=== PATIENT | female | born 1990 | race Caucasian/White ===

== ENCOUNTER 2018-03-12 22:36 | Inpatient (IN) | payer OTHER ==
[~2018-03-12 22:36] MED LIST: Bupivacaine 0.25% 10 ML SDV ONE
[2018-03-12] MEDS ORDERED: Sodium Chloride 0.9% 10 ML Syringe FLUSH PRN (22:57)
[2018-03-12] MEDS: Lactated Ringers 1,000 ML IV SCH ×3 (23:00→23:25)
[2018-03-12] MEDS ORDERED: Oxytocin/Lactated Ringers 10 UNIT/1,000 ML BAG IV SCH (23:30)
[2018-03-12] MEDS ORDERED: ePHEDrine 50 MG/ML SDV IVPUSH PRN (23:36)
[2018-03-12] MEDS ORDERED: diphenhydrAMINE 50 MG/ML SDV IVPUSH PRN (23:36)
[2018-03-12] MEDS ORDERED: fentaNYL 100 MCG/2 ML SDV EPIDUR PRN (23:36)
[2018-03-12] MEDS ORDERED: Bupivacaine/fentaNYL/NS 100 ML Bag EPIDUR SCH (23:45)
--- NOTE | 2018-03-13 00:01 | PCM.PREANE ---
Preanesthetic Assessment - Anesthesia/Transfusion/Family Hx Anesthesia History: Prior Anesthesia Without Reaction Family History of Anesthesia Reaction: No Transfusion History: No Prior Transfusion(s) - Review of Systems General: No Symptoms Pulmonary: No Symptoms Cardiovascular: No Symptoms Neurological: No Symptoms Other: Reports: None - Physical Assessment O2 Sat by Pulse Oximetry: 100 Respiratory Rate: 16 Vital Signs: Last Vital Signs Temp 98.4 F 03/12/18 22:57 Pulse Resp 16 03/12/18 22:57 BP 129/84 03/12/18 22:57 Pulse Ox 100 03/12/18 22:57 Weight: 64.41 kg ASA Class: 2 Mental Status: Alert & Oriented x3 Airway Class: Mallampati = 1 Dentition: Reports: Normal Dentition Thyro-Mental Finger Breadths: 3 Mouth Opening Finger Breadths: 3 ROM/Head Extension: Full Lungs: Clear to Auscultation, Normal Respiratory Effort Cardiovascular: Regular Rate, Regular Rhythm - Lab Values: Laboratory Last Values WBC 14.17 K/mm3 (3.98-10.04) H 03/12/18 23:15 RBC 3.69 M/mm3 (3.98-5.22) L 03/12/18 23:15 Hgb 12.1 gm/L (11.2-15.7) 03/12/18 23:15 Hct 35.5 % (34.1-44.9) 03/12/18 23:15 MCV 96.2 fl (79.4-94.8) H 03/12/18 23:15 MCH 32.8 pg (25.6-32.2) H 03/12/18 23:15 MCHC 34.1 g/dl (32.2-35.5) 03/12/18 23:15 RDW Std Deviation 44.8 fL (36.4-46.3) 03/12/18 23:15 Plt Count 180 K/mm3 (182-369) L 03/12/18 23:15 MPV 9.9 fl (9.4-12.3) 03/12/18 23:15 Neut % (Auto) 67.2 % (34.0-71.1) 03/12/18 23:15 Lymph % (Auto) 24.9 % (19.3-51.7) 03/12/18 23:15 [place] % (Auto) 7.3 % (4.7-12.5) 03/12/18 23:15 Eos % (Auto) 0.1 (0.7-5.8) L 03/12/18 23:15 Baso % (Auto) 0.1 % (0.1-1.2) 03/12/18 23:15 Neut # (Auto) 9.51 K/mm3 (1.56-6.13) H 03/12/18 23:15 Lymph # (Auto) 3.53 K/mm3 (1.18-3.74) 03/12/18 23:15 [place] # (Auto) 1.04 K/mm3 (0.24-0.36) H 03/12/18 23:15 Eos # (Auto) 0.02 K/mm3 (0.04-0.36) L 03/12/18 23:15 Baso # (Auto) 0.02 K/mm3 (0.01-0.08) 03/12/18 23:15 - Allergies Allergies/Adverse Reactions: Allergies Allergy/AdvReac Type Severity Reaction Status Date / Time No Known Allergies Allergy Verified 04/07/16 16:24 CDT - Blood Blood Available: No - Acknowledgements Anesthesia Type Planned: Epidural Pt an Appropriate Candidate for the Planned Anesthesia: Yes Alternatives and Risks of Anesthesia Discussed w Pt/Guardian: Yes Pt/Guardian Understands and Agrees with Anesthesia Plan: Yes PreAnesthesia Questionnaire Cardiovascular History: Reports: None Respiratory History: Reports: None Gastrointestinal History: Reports: GERD (with preg) : 2 (39 weeks) Para: 1 - Past Surgical History HEENT Surgical History: Reports: Oral Surgery, Other (See Below) (ears pin back) - History Comment History Comment: vits - SUBSTANCE USE Smoking Status *Q: Never Smoker Tobacco Use Within Last Twelve Months: No Second Hand Smoke Exposure: No Days Per Week of Alcohol Use: 0 Recreational Drug Use History: No - CURRENT (IN HOUSE) MEDS Current Meds: Current Medications Diphenhydramine HCl (Benadryl) 25 mg IVPUSH Q6H PRN PRN Reason: pruritis Ephedrine Sulfate (Ephedrine Sulfate) 5 mg IVPUSH ASDIRECTED PRN PRN Reason: Hypotension Fentanyl (Sublimaze) 100 mcg EPIDUR Q3H PRN PRN Reason: Pain Last Admin: 03/12/18 23:57 Dose: 100 mcg Fentanyl/Bupivacaine HCl (Fentanyl/Bupivacaine/Ns 2 Mcg-0.125% 100 Ml) 100 ml EPIDUR ASDIRECTED SAILAJA Last Admin: 03/12/18 23:57 Dose: 100 ml Lactated Ringer's (Ringers, Lactated) 1,000 mls @ 100 mls/hr IV ASDIRECTED SAILAJA Last Admin: 03/12/18 23:00 Dose: 100 mls/hr Oxytocin/Lactated Ringer's (Pitocin In Lr 10 Units/1,000 Ml) 10 unit in 1,000 mls @ 500 mls/hr IV ASDIRECTED SAILAJA; Protocol Sodium Chloride (Saline Flush) 10 ml FLUSH ASDIRECTED PRN PRN Reason: Keep Vein Open
--- NOTE | 2018-03-13 01:37 | PCM.DEL ---
L & D Note - General Info Date of Service: 03/13/18 - Delivery Note Labor: Spontaneous Delivery Outcome: Livebirth Delivery Method: Spontaneous Vaginal Delivery-Single Delivery Mode: Spontaneous Presentation: Right Occiput Anterior (АЛЕКСАНДР) Nuchal Cord: Present, Reduced Anesthesia Type: Epidural Amniotic Fluid Description: Clear Episiotomy Type: None Laceration: None Placenta: Intact, Spontaneous Cord: 3 Vessels Estimated Blood Loss: 200 Resuscitation Needed: Yes [place]: Bulb Syringe, Stimulated, Warmed, [place] Used, Warmer Used Score 1 min: 8 Score 5 min: 9 Delivery Comments (Free Text/Narrative):: Patient found to be complete and began pushing. With maternal pushing effort head delivered from an АЛЕКСАНДР presentation. Nuchal cord present and reduced. With gentle downward traction the shoulders and body delivered. placed on maternal abdomen. Cord clamped and cut. Cord blood obtained. Placenta allowed tie to separate and expelled intact. Inspection of the perineum showed no lacerations - General Info Date of Service: 03/13/18 - Patient Data Vitals - Most Recent: Last Vital Signs Temp 36.9 C 03/12/18 22:57 Pulse Resp 16 03/13/18 00:01 BP 129/84 03/12/18 22:57 Pulse Ox 100 03/13/18 00:01 Weight - Most Recent: 64.41 kg Lab Results Last 24 Hours: Laboratory Results - last 24 hr 03/12/18 Range/Units 23:15 WBC 14.17 H (3.98-10.04) K/mm3 RBC 3.69 L (3.98-5.22) M/mm3 Hgb 12.1 (11.2-15.7) gm/L Hct 35.5 (34.1-44.9) % MCV 96.2 H (79.4-94.8) fl MCH 32.8 H (25.6-32.2) pg MCHC 34.1 (32.2-35.5) g/dl RDW Std Deviation 44.8 (36.4-46.3) fL Plt Count 180 L (182-369) K/mm3 MPV 9.9 (9.4-12.3) fl Neut % (Auto) 67.2 (34.0-71.1) % Lymph % (Auto) 24.9 (19.3-51.7) % [place] % (Auto) 7.3 (4.7-12.5) % Eos % (Auto) 0.1 L (0.7-5.8) Baso % (Auto) 0.1 (0.1-1.2) % Neut # (Auto) 9.51 H (1.56-6.13) K/mm3 Lymph # (Auto) 3.53 (1.18-3.74) K/mm3 [place] # (Auto) 1.04 H (0.24-0.36) K/mm3 Eos # (Auto) 0.02 L (0.04-0.36) K/mm3 Baso # (Auto) 0.02 (0.01-0.08) K/mm3 Med Orders - Current: Current Medications Diphenhydramine HCl (Benadryl) 25 mg IVPUSH Q6H PRN PRN Reason: pruritis Ephedrine Sulfate (Ephedrine Sulfate) 5 mg IVPUSH ASDIRECTED PRN PRN Reason: Hypotension Fentanyl (Sublimaze) 100 mcg EPIDUR Q3H PRN PRN Reason: Pain Last Admin: 03/12/18 23:57 Dose: 100 mcg Fentanyl/Bupivacaine HCl (Fentanyl/Bupivacaine/Ns 2 Mcg-0.125% 100 Ml) 100 ml EPIDUR ASDIRECTED SAILAJA Last Admin: 03/12/18 23:57 Dose: 100 ml Lactated Ringer's (Ringers, Lactated) 1,000 mls @ 100 mls/hr IV ASDIRECTED SAILAJA Last Admin: 03/12/18 23:00 Dose: 100 mls/hr Oxytocin/Lactated Ringer's (Pitocin In Lr 10 Units/1,000 Ml) 10 unit in 1,000 mls @ 500 mls/hr IV ASDIRECTED SAILAJA; Protocol Sodium Chloride (Saline Flush) 10 ml FLUSH ASDIRECTED PRN PRN Reason: Keep Vein Open - Problem List & Annotations (1) 39 weeks gestation of SNOMED Code(s): 75953646 Code(s): Z3A.39 - 39 WEEKS GESTATION OF Status: Acute Current Visit: Yes (2) Normal labor SNOMED Code(s): 49902914 Code(s): O80 - ENCOUNTER FOR FULL-TERM UNCOMPLICATED DELIVERY; Z37.9 - OUTCOME OF DELIVERY, UNSPECIFIED Status: Acute Current Visit: Yes (3) Vaginal delivery SNOMED Code(s): 164869624 Code(s): O80 - ENCOUNTER FOR FULL-TERM UNCOMPLICATED DELIVERY Status: Acute Current Visit: No - Problem List Review Problem List Initiated/Reviewed/Updated: Yes - My Orders Last 24 Hours: My Active Orders 03/12/18 22:57 Activity as Tolerated [RC] PFP Communication Order [RC] ASDIRECTED Notify Provider [RC] PFP Notify Provider [RC] PRN Vital Signs [RC] PER UNIT ROUTINE RAPID PLASMA REAGIN,RPR [CHEM] Stat Sodium Chloride 0.9% [Saline Flush] 10 ml FLUSH ASDIRECTED PRN Electronic Heart Tones Ext w TOCO [WOMSER] Routine Electronic Heart Tones Internal [WOMSER] Per Unit Routine Peripheral IV Insertion Adult [OM.PC] Routine Resuscitation Status Routine 03/12/18 22:58 Patient Status [ADT] Routine Peripheral IV Care [RC] . DIRECTED 03/12/18 23:00 PCEA Epidural [RC] ASDIRECTED Urinary Catheter Assessment [RC] ASDIRECTED Urinary Catheter Removal [RC] Per Unit Routine Lactated Ringers [Ringers, Lactated] 1,000 ml IV ASDIRECTED 03/12/18 23:30 Oxytocin/Lactated Ringers [Pitocin in LR 10 Units/1,000 ML] 10 unit in 1,000 ml IV ASDIRECTED 03/12/18 Breakfast Regular Diet [DIET] 03/13/18 01:35 Patient Status Manage Transfer [TRANSFER] Routine - Assessment Assessment:: 27 y/o G2 now P2002 PPD#0 from at 39 5/7 wks - Plan Plan:: * Routine cares * Encourage breast feeding * Discharge home in 1 day
[2018-03-13] MEDS ORDERED: Benzocaine/Menthol 20%-0.5% Spray 56 GM Canister TOP PRN (02:17)
[2018-03-13] MEDS ORDERED: Witch Hazel Medicated Pads 100/Jar TOP PRN (02:17)
[2018-03-13] MEDS ORDERED: Ibuprofen 600 MG Tab PO PRN (02:17)
[2018-03-13] MEDS ORDERED: Acetaminophen 325 MG Tab PO PRN (02:17)
[2018-03-13] MEDS ORDERED: Lanolin 100% Cream 7 GM Tube TOP PRN (02:17)
[2018-03-13] MEDS ORDERED: Docusate Sodium 100 MG Cap PO PRN (02:17)
[2018-03-13] MEDS: Lactated Ringers 1,000 ML IV SCH (04:18)
--- NOTE | 2018-03-13 07:44 | PCM.LDHP ---
L&D History of Present Illness - General Date of Service: 03/12/18 Admit Problem/Dx: Admission Diagnosis/Problem Admission Diagnosis/Problem Source of Information: Patient History Limitations: Reports: No Limitations - History of Present Illness Introduction:: Patient is a 27 y/o who presents at 39 4/7 wks in labor. Contractions started after appointment earlier today. 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: Reports: : 2 Para: 1 LMP (Approximate): Psychiatric History: Reports: Depression - Past Surgical History HEENT Surgical History: Reports: Oral Surgery, Other (See Below) (ears pin back) Social & Family History - Family History Family Medical History: Noncontributory - Tobacco Use Smoking Status *Q: Never Smoker Second Hand Smoke Exposure: No - Alcohol Use Alcohol Use History: No Days Per Week of Alcohol Use: 0 - Recreational Drug Use Recreational Drug Use: No H&P Review of Systems - Review of Systems: Review Of Systems: See Below General: Reports: No Symptoms Pulmonary: Reports: No Symptoms Cardiovascular: Reports: No Symptoms Gastrointestinal: Reports: No Symptoms Genitourinary: Reports: No Symptoms Musculoskeletal: Reports: No Symptoms Neurological: Reports: No Symptoms L&D Exam - Exam Exam: See Below - Vital Signs Vital Signs: Last Vital Signs Temp 36.9 C 03/12/18 22:57 Pulse Resp 16 03/13/18 00:01 BP 129/84 03/12/18 22:57 Pulse Ox 100 03/13/18 00:01 Weight: 64.41 kg - OB Specific Contraction Intensity: Moderate to Strong Movement: Active Heart Tones: Present Heart Rate (FHR) Variability: Moderate (6-25 bmp) Presentation: Vertex - Zavala Score Zavala Score Cervix Position: Anterior Zavala Score Consistency: Soft Zavala Score Effacement: >80% Zavala Score Dilation: > 5 cm Zavala Score Infant's Station: +1, +2 Zavala Score Total: 13 - Exam General: Alert, Oriented, Cooperative Lungs: Clear to Auscultation, Normal Respiratory Effort Cardiovascular: Regular Rate, Regular Rhythm GI/Abdominal Exam: Soft, Non-Tender Genitourinary: Normal external exam Extremities: Normal Inspection Skin: Warm, Dry, Intact - Patient Data Lab Results Last 24 hrs: Laboratory Results - last 24 hr 03/12/18 Range/Units 23:15 WBC 14.17 H (3.98-10.04) K/mm3 RBC 3.69 L (3.98-5.22) M/mm3 Hgb 12.1 (11.2-15.7) gm/L Hct 35.5 (34.1-44.9) % MCV 96.2 H (79.4-94.8) fl MCH 32.8 H (25.6-32.2) pg MCHC 34.1 (32.2-35.5) g/dl RDW Std Deviation 44.8 (36.4-46.3) fL Plt Count 180 L (182-369) K/mm3 MPV 9.9 (9.4-12.3) fl Neut % (Auto) 67.2 (34.0-71.1) % Lymph % (Auto) 24.9 (19.3-51.7) % [place] % (Auto) 7.3 (4.7-12.5) % Eos % (Auto) 0.1 L (0.7-5.8) Baso % (Auto) 0.1 (0.1-1.2) % Neut # (Auto) 9.51 H (1.56-6.13) K/mm3 Lymph # (Auto) 3.53 (1.18-3.74) K/mm3 [place] # (Auto) 1.04 H (0.24-0.36) K/mm3 Eos # (Auto) 0.02 L (0.04-0.36) K/mm3 Baso # (Auto) 0.02 (0.01-0.08) K/mm3 Result Diagrams: 03/12/18 23:15 - Problem List (1) 39 weeks gestation of SNOMED Code(s): 38765688 ICD Code: Z3A.39 - 39 WEEKS GESTATION OF Status: Acute Current Visit: Yes (2) Normal labor SNOMED Code(s): 73290235 ICD Code: O80 - ENCOUNTER FOR FULL-TERM UNCOMPLICATED DELIVERY; Z37.9 - OUTCOME OF DELIVERY, UNSPECIFIED Status: Acute Current Visit: Yes Problem List Initiated/Reviewed/Updated: Yes Orders Last 24hrs: Active Orders 24 hr Category Date Time Status Activity as Tolerated [RC] PER UNIT ROUTINE Care 03/13/18 02:17 Active Notify Provider [RC] ASDIRECTED Care 03/12/18 23:36 Inactive PCEA Epidural [RC] ASDIRECTED Care 03/12/18 23:00 Inactive Urinary Catheter Assessment [RC] ASDIRECTED Care 03/12/18 23:00 Inactive Vital Signs [RC] 03,09,15,21 Care 03/13/18 02:17 Active Regular Diet [DIET] Diet 03/13/18 Breakfast Active RAPID PLASMA REAGIN,RPR [CHEM] Stat Lab 03/12/18 22:57 Ordered Acetaminophen [Tylenol] Med 03/13/18 02:17 Active 650 mg PO Q4H PRN Benzocaine/Menthol [Dermoplast Pain Relief [place]] Med 03/13/18 02:17 Active See Dose Instructions TOP ASDIRECTED PRN Docusate Sodium [Colace] Med 03/13/18 02:17 Active 100 mg PO BID PRN Ibuprofen [Motrin] Med 03/13/18 02:17 Active 600 mg PO Q6H PRN Lanolin [Lansinoh HPA] Med 03/13/18 02:17 Active See Dose Instructions TOP ASDIRECTED PRN Witch Apurva [Tucks] Med 03/13/18 02:17 Active 1 pad TOP ASDIRECTED PRN Assess Lochia [WOMSER] Per Unit Routine Oth 03/13/18 02:17 Ordered Assess Uterine Involution [WOMSER] Per Unit Routine Oth 03/13/18 02:17 Ordered Breast Pump [WOMSER] Per Unit Routine Oth 03/13/18 02:17 Ordered Heat Therapy [OM.PC] PRN Oth 03/13/18 02:17 Ordered Heat Therapy [OM.PC] PRN Oth 03/14/18 02:17 Ordered Ice Therapy [OM.PC] Per Unit Routine Oth 03/13/18 02:17 Ordered Perineal Care [OM.PC] Per Unit Routine Oth 03/13/18 02:17 Ordered Peripheral IV Discontinue [OM.PC] Routine Oth 03/13/18 02:17 Ordered Sitz Bath [OM.PC] Per Unit Routine Oth 03/13/18 02:17 Ordered Resuscitation Status Routine Resus Stat 03/12/18 22:57 Ordered Medication Orders Acetaminophen (Tylenol) 650 mg PO Q4H PRN PRN Reason: mild pain or fever Benzocaine/Menthol (Dermoplast Pain Relief [place]) 0 gm TOP ASDIRECTED PRN PRN Reason: Perineal Comfort Measure Docusate Sodium (Colace) 100 mg PO BID PRN PRN Reason: Constipation Emollient Ointment (Lansinoh Hpa) 0 gm TOP ASDIRECTED PRN PRN Reason: Sore Nipples Ibuprofen (Motrin) 600 mg PO Q6H PRN PRN Reason: Mild pain or fever Witch Apurva (Tucks) 1 pad TOP ASDIRECTED PRN PRN Reason: Hemorrhoid pain Assessment/Plan Comment:: 27 y/o at 39 4/7 wks who presents in labor * CBC and T&S * GBS negative, no need for antibiotics * Epidural for pain management * Anticipate
--- NOTE | 2018-03-13 08:00 | PCM48HPAN ---
Post Anesthesia Note - EVALUATION WITHIN 48HRS OF ANESTHETIC Vital Signs in Normal Range: Yes Patient Participated in Evaluation: Yes Respiratory Function Stable: Yes Airway Patent: Yes Cardiovascular Function Stable: Yes Hydration Status Stable: Yes Pain Control Satisfactory: Yes Nausea and Vomiting Control Satisfactory: Yes Mental Status Recovered: Yes
[2018-03-14 03:36] VITALS: BP 111/65
--- NOTE | 2018-03-14 06:53 | PCM.DCSUM1 ---
Discharge Summary - Hospital Course Free Text/Narrative:: Julita is a 27-year-old 2 now para 2002 female who is admitted 2 days ago at 39-4/7 weeks gestational age. She is in active labor. She progressed delivered vaginally and is now on day 2. No concerns. She is nursing without problems, ambulating well, has minimal lochia and is voiding without difficulty. She is desiring discharge home from the hospital. - Discharge Data Discharge Date: 03/14/18 Discharge Disposition: Home, Self-Care 01 Condition: Good - Patient Instructions Diet: Regular Diet as Tolerated (Nursing diet was increased calories and calcium as directed) Activity: As Tolerated (No intercourse tampons until bleeding resolves) Driving: Do Not Drive (2 days) Showering/Bathing: May Shower (May take a bath) Notify Provider of: Fever, Increased Pain, Swelling and Redness, Nausea and/or Vomiting - Discharge Plan Home Medications: Home Meds Acetaminophen [Tylenol] 650 mg PO Q4H PRN #0 tablet 03/14/18 [Rx] Ibuprofen [Motrin] 600 mg PO Q6H PRN tablet 03/14/18 [Rx] Referrals: Idalmis Willams MD [Primary Care Provider] - (Patient to call Dr. Willams's office next week to arrange a appointment..) - Discharge Summary/Plan Comment DC Time >30 min.: No Discharge Summary/Plan Comment: Discharge instructions: 1. Discharge home 2. Diet, activity and follow-up discussed with patient. Recommend nursing diet with increased calories and calcium. 3. Precautions given concern increased pain, bleeding, temperature, signs/ symptoms of DVT/PE. 4. Medications per home medication was printed, discussed with and given to the patient. 5. Return to clinic-Dr. Willams-patient to call for an appointment. Diagnosis: Term -delivered Condition: Good - Patient Data Vitals - Most Recent: Last Vital Signs Temp 36.8 C 03/14/18 03:02 Pulse 52 L 03/14/18 03:02 Resp 16 03/14/18 03:02 BP 111/65 03/14/18 03:02 Pulse Ox 98 03/14/18 03:02 Weight - Most Recent: 64.41 kg I&O - Last 24 hours: Intake & Output 06/05/2303/13/18 03/14/18 14:59 22:59 06:59 Intake Total 0 Balance 0 Lab Results - Last 24 hrs: Laboratory Results - last 24 hr 03/12/18 Range/Units 23:15 RPR Non-reactive (NONREACTIVE) Med Orders - Current: Current Medications Acetaminophen (Tylenol) 650 mg PO Q4H PRN PRN Reason: mild pain or fever Benzocaine/Menthol (Dermoplast Pain Relief [place]) 0 gm TOP ASDIRECTED PRN PRN Reason: Perineal Comfort Measure Docusate Sodium (Colace) 100 mg PO BID PRN PRN Reason: Constipation Emollient Ointment (Lansinoh Hpa) 0 gm TOP ASDIRECTED PRN PRN Reason: Sore Nipples Ibuprofen (Motrin) 600 mg PO Q6H PRN PRN Reason: Mild pain or fever Last Admin: 03/14/18 03:08 Dose: 600 mg Witch Apurva (Tucks) 1 pad TOP ASDIRECTED PRN PRN Reason: Hemorrhoid pain Discontinued Medications Bupivacaine HCl (Sensorcaine-Mpf 0.25%) 10 ml .ROUTE .STK-MED ONE Stop: 03/12/18 22:01 Diphenhydramine HCl (Benadryl) 25 mg IVPUSH Q6H PRN PRN Reason: pruritis Ephedrine Sulfate (Ephedrine Sulfate) 5 mg IVPUSH ASDIRECTED PRN PRN Reason: Hypotension Fentanyl (Sublimaze) 100 mcg EPIDUR Q3H PRN PRN Reason: Pain Last Admin: 03/12/18 23:57 Dose: 100 mcg Fentanyl/Bupivacaine HCl (Fentanyl/Bupivacaine/Ns 2 Mcg-0.125% 100 Ml) 100 ml EPIDUR ASDIRECTED SAILAJA Last Admin: 03/12/18 23:57 Dose: 100 ml Lactated Ringer's (Ringers, Lactated) 1,000 mls @ 100 mls/hr IV ASDIRECTED [facility] Last Admin: 03/13/18 04:18 Dose: 100 mls/hr Oxytocin/Lactated Ringer's (Pitocin In Lr 10 Units/1,000 Ml) 10 unit in 1,000 mls @ 500 mls/hr IV ASDIRECTED [facility]; Protocol Last Admin: 03/13/18 04:19 Dose: 500 mls/hr Sodium Chloride (Saline Flush) 10 ml FLUSH ASDIRECTED PRN PRN Reason: Keep Vein Open
== END 2018-03-14 11:05 | disposition home or self-care (01) | DRG 775 ==
LOC: JD.OBCHECK 22:36 → JD.OB 22:58 → JD.OBCHECK 23:10 → JD.OB 23:12 → OBSVTOIN 03-13 01:15 → JD.OB 03-13 01:16
PROVIDERS: ADMIT Obstetrics & Gynecology; ATTEND Obstetrics & Gynecology
PROC: 10907ZC Drainage of Amniotic Fluid, Therapeutic from Products of Conception, Via Natural or Artificial Opening (ICD-10-PCS; principal; 2018-03-13)
PROC: 10E0XZZ Delivery of Products of Conception, External Approach (ICD-10-PCS; principal; 2018-03-13)
PROC: 6A550ZT Pheresis of Cord Blood Stem Cells, Single (ICD-10-PCS; principal; 2018-03-13)
PROC: 00HU33Z Insertion of Infusion Device into Spinal Canal, Percutaneous Approach (ICD-10-PCS; 2018-03-13)
PROC: 3E0R3BZ Introduction of Anesthetic Agent into Spinal Canal, Percutaneous Approach (ICD-10-PCS; 2018-03-13)
DX: O69.81X0 Labor and delivery complicated by cord around neck, without compression, not applicable or unspecified (principal); Z3A.39 39 weeks gestation of pregnancy; Z37.0 Single live birth
CPT/HCPCS: 36415; 59025; 59409; 85025; 86592; A9270-GY; J2590; J3010; J7120